=== PATIENT | male | born 1995 | race Caucasian/White ===

== ENCOUNTER 2018-12-28 19:22 | Emergency (ER) | payer BC, MEDICAID ==
[2018-12-28] MEDS ORDERED: Ketorolac 60 MG/2 ML SDV IM ONE (20:10)
--- NOTE | 2018-12-28 20:11 | EDM.PDOC ---
ED HPI GENERAL MEDICAL PROBLEM - General Chief Complaint: Lower Extremity Injury/Pain Stated Complaint: RT BIG TOE PAIN Time Seen by Provider: 12/28/18 20:05 Source of Information: Reports: Patient, Family, RN Notes Reviewed History Limitations: Reports: No Limitations - History of Present Illness INITIAL COMMENTS - FREE TEXT/NARRATIVE: 23-year-old gentleman presents to the emergency department today with pain in his great toe on his right foot states it's really developed over the last 24 hours is warm to the touch difficult for him to move he does have a history gout in the family right great toe Pain Score (Numeric/FACES): 9 - Related Data Allergies Allergy/AdvReac Type Severity Reaction Status Date / Time No Known Allergies Allergy Verified 12/28/18 19:53 Home Meds: Home Meds Naproxen Sodium [Aleve] 1 tab PO Q6H 12/28/18 [History] guaiFENesin [Mucinex] 1 tab PO Q12H 12/28/18 [History] Past Medical History Musculoskeletal History: Reports: Fracture, Other (See Below) Other Musculoskeletal History: fingertips - Infectious Disease History Infectious Disease History: Reports: Chicken Pox Social & Family History - Tobacco Use Smoking Status *Q: Heavy Tobacco Smoker Years of Tobacco use: 6 Packs/Tins Daily: 1 - Caffeine Use Caffeine Use: Reports: Soda - Recreational Drug Use Recreational Drug Use: No Review of Systems - Review of Systems Review Of Systems: See Below Musculoskeletal: Reports: Foot Pain Skin: Reports: Pallor ED EXAM, GENERAL - Physical Exam Exam: See Below Free Text/Narrative:: Examination of the foot right side pedal pulse +2 slight erythema is noted over the great toe as well as some warmth he is tender to the touch over the great toe Exam Limited By: No Limitations General Appearance: Alert, WD/WN, No Apparent Distress Course - Vital Signs Last Recorded V/S: Last Vital Signs Temp 95.7 F 12/28/18 19:54 Pulse 69 12/28/18 19:54 Resp 14 12/28/18 19:54 BP 157/79 H 12/28/18 19:54 Pulse Ox 96 12/28/18 19:54 - Orders/Labs/Meds Labs: Laboratory Tests 12/28/18 Range/Units 20:10 Uric Acid 8.0 H (3.5-7.2) mg/dL Meds: Medications Discontinued Medications Generic Name Dose Route Start Last Admin Trade Name Adam PRN Reason Stop Dose Admin Ketorolac Tromethamine 60 mg 12/28/18 20:10 12/28/18 20:25 Toradol IM 12/28/18 20:11 60 mg ONETIME ONE Administration Departure - Departure Time of Disposition: 20:59 Disposition: Home, Self-Care 01 Condition: Fair Clinical Impression: Gout attack Qualifiers: Gout site: toe Gout etiology: unspecified cause Laterality: right Qualified Code(s): M10.9 - Gout, unspecified - Discharge Information Referrals: PCP,None [Primary Care Provider] - Forms: ED Department Discharge Additional Instructions: Try the colchicine 2 tablets followed by 1 tablet 1 hour later Please followup with your primary care provider in 3-5 days if not better, please call return to the emergency department with worsening of symptoms. - Assessment/Plan Plan: Assessment Acuity = acute Site and laterality = gout flareup great toe right foot Etiology = unclear etiology Manifestations = none Location of injury = Home Lab values = uric acid elevated at 8 Plan Prescription written for culture seen follow-up with primary care 3-5 days if no improvement This note was dictated using Pure[employer] recognition software please call with any questions on syntax or grammar.
== END 2018-12-28 21:06 | disposition home or self-care (01) ==
LOC: JP.ED 19:22
DX: M10.9 Gout, unspecified (principal); F17.210 Nicotine dependence, cigarettes, uncomplicated
CPT/HCPCS: 36415; 84550; 96372; 99283; J1885

== ENCOUNTER 2021-02-25 12:33 | Emergency (ER) | payer BC ==
--- NOTE | 2021-02-25 13:17 | EDM.PDOC ---
ED HPI GENERAL MEDICAL PROBLEM - General Chief Complaint: Bite:Animal, Insect Stated Complaint: TIC BITE Time Seen by Provider: 02/25/21 13:05 Source of Information: Reports: Patient History Limitations: Reports: No Limitations - History of Present Illness INITIAL COMMENTS - FREE TEXT/NARRATIVE: Pt with tick bite approximately one week ago. Now he notes a classic 'bulls eye' rash. Pt denies symptoms, no numbness, no joint pain. He is here today because he noticed the rash and didn't want to get sick. Onset: Sudden Onset Date: 02/18/21 Onset Time: 20:00 Duration: Getting Worse Location: Reports: Back (right mid back) Severity: Mild Improves with: Reports: None Worsens with: Reports: None Context: Reports: Other (insect bite) Associated Symptoms: Reports: No Other Symptoms - Related Data Allergies Allergy/AdvReac Type Severity Reaction Status Date / Time No Known Allergies Allergy Verified 02/25/21 12:50 Home Meds: Home Meds Doxycycline [Vibramycin] 100 mg PO BID 14 Days #28 cap 02/25/21 [Rx] Past Medical History - Past Health History Medical/Surgical History: Denies Medical/Surgical History Musculoskeletal History: Reports: Fracture, Other (See Below) Other Musculoskeletal History: fingertips - Infectious Disease History Infectious Disease History: Reports: Chicken Pox Social & Family History - Caffeine Use Caffeine Use: Reports: Coffee, Energy Drinks, Soda, Tea - Recreational Drug Use Recreational Drug Use: No ED ROS GENERAL - Review of Systems Review Of Systems: See Below Constitutional: Reports: No Symptoms HEENT: Reports: No Symptoms Respiratory: Reports: No Symptoms Cardiovascular: Reports: No Symptoms GI/Abdominal: Reports: No Symptoms Musculoskeletal: Reports: No Symptoms Skin: Reports: Lesions (tick bite - tick removed by pt one week ago) Neurological: Reports: No Symptoms Psychiatric: Reports: No Symptoms ED EXAM, ANIMAL BITE - Physical Exam Exam: See Below Exam Limited By: No Limitations General Appearance: Alert, WD/WN, No Apparent Distress Respiratory/Chest: No Respiratory Distress Cardiovascular: Normal Peripheral Pulses Neurological: Alert, Oriented, CN II-XII Intact Skin Exam: Rash (classic bulls eye from tick bite approx 3 cm roun with central clearing) Lymphadenopathy: Bilateral: No Adenopathy Course - Vital Signs Last Recorded V/S: Last Vital Signs Temp 36.4 C 02/25/21 12:53 Pulse 55 L 02/25/21 12:53 Resp 20 02/25/21 12:53 BP 118/59 L 02/25/21 12:53 Pulse Ox 96 02/25/21 12:53 Departure - Departure Time of Disposition: 13:32 Disposition: Home, Self-Care 01 Condition: Good Clinical Impression: Tick bite of back - Discharge Information *PRESCRIPTION DRUG MONITORING PROGRAM REVIEWED*: Not Applicable Prescriptions: Doxycycline [Vibramycin] 100 mg PO BID 14 Days #28 cap Instructions: Animal Bite, Adult, [id number] Referrals: PCP,None [Primary Care Provider] - Forms: ED Department Discharge Additional Instructions: Followup with primary care provider if develop symptoms after taking antibiotic or bite show signs or symptoms of infection Sepsis Event Note (ED) - Evaluation Sepsis Screening Result: No Definite Risk - Focused Exam Vital Signs: Vital Signs Temp Pulse Resp BP Pulse Ox 02/25/21 12:53 36.4 C 55 L 20 118/59 L 96
== END 2021-02-25 13:32 | disposition home or self-care (01) ==
LOC: JP.ED 12:33
DX: S20.461A Insect bite (nonvenomous) of right back wall of thorax, initial encounter (principal); W57.XXXA Bitten or stung by nonvenomous insect and other nonvenomous arthropods, initial encounter
CPT/HCPCS: 99283